=== PATIENT | male | born 1965 | race American Indian/Alaskan Native ===

== ENCOUNTER 2019-03-04 12:15 | Emergency (ER) | payer OTHER ==
[2019-03-04 12:31] VITALS: BP 138/83
--- NOTE | 2019-03-04 12:31 | Emergency Department Report ---
Chief Complaint: Extremity Injury, Lower Stated Complaint: HURT (R) KNEE Time Seen by Provider: 03/04/19 12:29 - HPI History of Present Illness: This is a 53 y.o. male that presents with right knee pain. Patient states he was moving a sofa for his when he stepped down wrong. Patient states he heard a loud crunch sound. - Exam Vital Signs: Vital Signs 03/04/19 12:30 Temperature 98.2 F Pulse Rate 87 Respiratory 18 Rate Blood Pressure 138/83 O2 Sat by Pulse 96 Oximetry MSE screening note: Focused history and physical exam performed. Due to findings the following was ordered: XR of right knee ED Disposition for MSE Condition: Stable
--- NOTE | 2019-03-04 13:48 | XRay Report ---
RIGHT KNEE, 3 views: History: Pain to anterior patella No comparison. There is normal bone mineralization. Moderate osteoarthritic changes are identified in all 3 compartments. Subtle calcinosis of the menisci is also demonstrated. There appear to be 3 or 4 calcified intra-articular foreign bodies overlying Hoffa's fat-pad on the lateral image. There is a large enthesophyte projecting from the superior patella. Moderate joint effusion. IMPRESSION: Moderate to severe degenerative changes. Multiple calcified foreign bodies are suspected in the anterior joint space. Moderate joint effusion.
--- NOTE | 2019-03-04 14:12 | Emergency Department Report ---
ED Extremity Problem HPI - General Chief complaint: Extremity Injury, Lower Stated complaint: HURT (R) KNEE Time Seen by Provider: 03/04/19 12:29 Source: patient Mode of arrival: Ambulatory Limitations: No Limitations - History of Present Illness Initial comments: Patient is a 53-year-old male with past medical history of arthritis who was helping move a couch 2 days ago and he miss stepped on some stairs and came down wrong on his right lower extremity. Patient states that he heard a crunching sound in his right knee. He's been having difficulty bearing weight and bending the leg. Most of his pain is in the medial knee. Pain is a 8 out of 10 in severity hurts worse with weightbearing and movement. Severity scale (0 -10): 10 - Related Data Previous Rx's Medication Instructions Recorded Last Taken Type HYDROcodone/ACETAMINOPHEN 1 each PO Q6HR PRN #12 tablet 03/04/19 Unknown Rx [Hydrocodone-Acetamin 5-325 mg] Ibuprofen [Ibu] 800 mg PO Q8H PRN #20 tablet 03/04/19 Unknown Rx Allergies Allergy/AdvReac Type Severity Reaction Status Date / Time CODIENE Allergy Unknown Uncoded 03/04/19 12:17 ED Review of Systems ROS: Stated complaint: HURT (R) KNEE Other details as noted in HPI Comment: All other systems reviewed and negative ED Past Medical Hx - Social History Smoking Status: Current Every Day Smoker Substance Use Type: None - Medications Home Medications: Home Medications Medication Instructions Recorded Confirmed Last Taken Type HYDROcodone/ACETAMINOPHEN 1 each PO Q6HR PRN #12 tablet 03/04/19 Unknown Rx [Hydrocodone-Acetamin 5-325 mg] Ibuprofen [Ibu] 800 mg PO Q8H PRN #20 tablet 03/04/19 Unknown Rx ED Physical Exam - General Limitations: No Limitations General appearance: alert, in no apparent distress - Head Head exam: Present: atraumatic, normocephalic - Eye Eye exam: Present: normal appearance - ENT ENT exam: Present: mucous membranes moist - Neck Neck exam: Present: normal inspection - Respiratory Respiratory exam: Present: normal lung sounds bilaterally. Absent: respiratory distress - Cardiovascular Cardiovascular Exam: Present: regular rate, normal rhythm. Absent: systolic murmur, diastolic murmur, rubs, gallop - GI/Abdominal GI/Abdominal exam: Present: soft, normal bowel sounds - Rectal Rectal exam: Present: deferred - Extremities Exam Extremities exam: Present: normal inspection, tenderness (patient with mild-to-m oderate effusion to the right knee. His tenderness at the medial collateral ligament area. It is no anterior drawer sign.) - Back Exam Back exam: Present: normal inspection - Neurological Exam Neurological exam: Present: alert, oriented X3 - Psychiatric Psychiatric exam: Present: normal affect, normal mood - Skin Skin exam: Present: warm, dry, intact, normal color. Absent: rash ED Course Vital Signs 03/04/19 12:30 Temperature 98.2 F Pulse Rate 87 Respiratory 18 Rate Blood Pressure 138/83 O2 Sat by Pulse 96 Oximetry ED Medical Decision Making - Radiology Data [facility] [address] [place] [address] XRay Report Signed Patient: MARITO PANTOJA MR#: [id number] : 1965 Acct:[id number] Age/Sex: 53 / M ADM Date: 03/04/19 Loc: ED Attending Dr: Ordering Physician: MARISSA CASTILLO Date of Service: 03/04/19 Procedure(s): XR knee 3V RT Accession Number(s): [id number] cc: MARISSA CASTILLO Fluoro Time In Minutes: RIGHT KNEE, 3 views: History: Pain to anterior patella No comparison. There is normal bone mineralization. Moderate osteoarthritic changes are identified in all 3 compartments. Subtle calcinosis of the menisci is also demonstrated. There appear to be 3 or 4 calcified intra-articular foreign bodies overlying Hoffa's fat-pad on the lateral image. There is a large enthesophyte projecting from the superior patella. Moderate joint effusion. IMPRESSION: Moderate to severe degenerative changes. Multiple calcified foreign bodies are suspected in the anterior joint space. Moderate joint effusion. Transcribed By: TTR Dictated By: ABRAHAM JOSE JR, MD Electronically Authenticated By: ABRAHAM JOSE JR, MD Signed Date/Time: 03/04/19 1343 DD/ 1342 TD/TT: 03/04/19 1343 - Medical Decision Making Patient placed in a knee immobilizer will have follow-up with orthopedics. Critical care attestation.: If time is entered above; I have spent that time in minutes in the direct care of this critically ill patient, excluding procedure time. ED Disposition Clinical Impression: Knee effusion, right Knee MCL sprain Qualifiers: Encounter type: initial encounter Laterality: right Qualified Code(s): S83.411A - Sprain of medial collateral ligament of right knee, initial encounter Disposition: TO HOME OR SELFCARE Is pt being admited?: No Does the pt Need Aspirin: No Condition: Stable Instructions: Knee Effusion (ED), Knee Sprain (ED), RICE Therapy (ED) Referrals: MORGAN HOOPER MD [Staff Physician] - 3-5 Days Time of Disposition: 14:16
== END 2019-03-04 15:01 | disposition home or self-care (01) ==
LOC: ED 12:15
DX: S83.411A Sprain of medial collateral ligament of right knee, initial encounter (principal); M25.461 Effusion, right knee; F17.200 Nicotine dependence, unspecified, uncomplicated; Z88.5 Allergy status to narcotic agent; W10.9XXA Fall (on) (from) unspecified stairs and steps, initial encounter; Y93.89 Activity, other specified; Y92.89 Other specified places as the place of occurrence of the external cause; Y99.8 Other external cause status

== ENCOUNTER 2019-12-02 13:09 | Emergency (ER) | payer SELFPAY ==
[2019-12-02 13:13] VITALS: BP 165/114
--- NOTE | 2019-12-02 13:31 | Emergency Department Report ---
HPI - General Chief Complaint: Allergic Reaction Time Seen by Provider: 12/02/19 13:28 - HPI HPI: 54 male comes in for allergic reaction to medication NyQuil that he started last night. Took to doses of medication. Reports that his hands and feet has a r sally. Denies any SOB or chest pain no N/Vor Diarrhea. Rash has not improved ED Past Medical Hx - Past Medical History Previous Medical History?: No - Surgical History Past Surgical History?: No - Social History Smoking Status: Current Every Day Smoker Substance Use Type: None - Medications Home Medications: Home Medications Medication Instructions Recorded Confirmed Last Taken Type HYDROcodone/ACETAMINOPHEN 1 each PO Q6HR PRN #12 tablet 03/04/19 Unknown Rx [Hydrocodone-Acetamin 5-325 mg] Ibuprofen [Ibu] 800 mg PO Q8H PRN #20 tablet 03/04/19 Unknown Rx ED Review of Systems ROS: Stated complaint: ALLERGIC REACTION Other details as noted in HPI Physical Exam - Physical Exam Vital Signs: Vital Signs 12/02/19 13:12 Temperature 97.8 F Pulse Rate 79 Respiratory 16 Rate Blood Pressure 165/114 O2 Sat by Pulse 91 Oximetry ED Course Vital Signs 12/02/19 13:12 Temperature 97.8 F Pulse Rate 79 Respiratory 16 Rate Blood Pressure 165/114 O2 Sat by Pulse 91 Oximetry Critical care attestation.: If time is entered above; I have spent that time in minutes in the direct care of this critically ill patient, excluding procedure time. ED Disposition Condition: Stable
--- NOTE | 2019-12-02 13:32 | Event Note ---
ED Screening Note Date of service: 12/02/19 Time: 13:32 ED Screening Note: 54 male comes in for allergic reaction to medication NyQuil that he started last night. Took to doses of medication. Reports that his hands and feet has a rash. Denies any SOB or chest pain no N/Vor Diarrhea. Rash has not improved This initial assessment/diagnostic orders/clinical plan/treatment(s) is/are subject to change based on patients health status, clinical progression and re- assessment by fellow clinical providers in the ED. Further treatment and workup at subsequent clinical providers discretion. Patient/guardian urged not to elope from the ED as their condition may be serious if not clinically assessed and managed. Initial orders include:
== END 2019-12-02 13:36 | disposition left against medical advice (07) ==
LOC: ED 13:09
DX: R21 Rash and other nonspecific skin eruption (principal); Z53.21 Procedure and treatment not carried out due to patient leaving prior to being seen by health care provider